=== PATIENT | female | born 2000 | race Caucasian/White ===

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

== ENCOUNTER 2023-11-15 19:54 | Emergency (ER) | payer OTHER, SELFPAY ==
[2023-11-15 20:00] VITALS: BP 150/100; PULSE 91; O2SAT 99
[2023-11-15 20:01] VITALS: BP 123/68; PULSE 70; RESP 17; TEMP 36.6; O2SAT 99
[2023-11-15 20:02] VITALS: BP 123/68; PULSE 70; RESP 17; TEMP 36.6; O2SAT 99; BMI 23.6
[2023-11-15 20:21] LABS: MANUAL DIFF FLAG NO
[2023-11-15 20:23] LABS: Basophils Percent Auto 0.2 % (0-2); Hematocrit 39.9 % (37.0-47.0); Hemoglobin 14.1 g/dl (12.0-16.0); Imm Gran Abs Auto 0.06 X10*3/uL (0.00-0.03); Imm Gran Pct Auto 0.4 % (0.0-0.4); Lymphocytes Absolute Auto 1.2 X10*3/uL (1.2-4.9); Lymphocytes Percent Auto 7.8 % (20-40); Mean Corpuscular HGB Conc 35.3 g/dl (31.0-35.0); Mean Corpuscular Hemoglobin 30.7 pg (27.0-33.0); Mean Corpuscular Volume 86.9 fL (80.0-98.0); Mean Platelet Volume 10.1 fL (9.4-12.3); Monocytes Absolute Auto 0.9 X10*3/uL (0.1-1.2); Monocytes Percent Auto 6.2 % (2-11); Neutrophils Absolute Auto 12.5 x10*3/uL (2.0-8.3); Neutrophils Percent Auto 85.4 % (45-73); Platelet Count 250 X10*3/uL (160-400); Red Blood Count 4.59 X10*6/uL (4.20-5.50); Red Cell Distribution Width 11.6 % (11.0-16.0); White Blood Count 14.7 X10*3/uL (4.8-10.8)
[2023-11-15] MEDS: ondansetron HCL 4 MG/2 ML VIAL IVPUSH (20:25)
[2023-11-15] MEDS: 0.9 % Sodium Chloride 1,000 ML 999 ML IV ×2 (20:25→22:28)
[2023-11-15 20:40] LABS: Alanine Aminotransferase 19 U/L (0-31); Albumin Level 4.9 g/dL (3.5-5.0); Alkaline Phosphatase 60 U/L (39-117); Anion Gap 18 (12-20); Aspartate Amino Transferase 20 U/L (5-31); Bilirubin Direct 0.3 mg/dL (0.0-0.5); Bilirubin Total 0.8 mg/dL (0.0-1.0); Blood Urea Nitrogen 7 mg/dL (9-16); Calcium 9.6 mg/dL (8.4-10.2); Carbon Dioxide 19 mmol/L (22-29); Chloride 103 mmol/L (96-108); Creatinine Clr Calc Pharmacy 98.7; Estimated Glomerular Filt Rate > 60; Glucose Random 112 mg/dL (60-115); Lipase 11 U/L (8-78); Potassium 3.4 mmol/L (3.3-5.1); Sodium 137 mmol/L (135-145); Total Protein 8.5 g/dL (6.5-8.0)
--- NOTE | 2023-11-15 21:51 | ED_ITS ---
HPI - Abdominal Pain General Chief Complaint: Abdominal Pain Stated Complaint: abd pain, n/v since last night Time Seen by Provider: 11/15/23 21:30 Source: patient Mode of arrival: ambulatory Limitations: no limitations History of Present Illness ED Provider: tobias VARGHESE narrative: Patient complaining of nausea vomiting since last night multiple times and were take anything solid also complaining of sore throat since yesterday, also complaining of pain in the epigastric area no fever no chills patient does smoke cannabis had similar episodes in the past Related Data Previous Rx's ?Medication ?Instructions ?Recorded ondansetron 4 mg disintegrating 4 mg PO Q6H PRN nausea and 07/25/21 tablet vomiting #10 tabs Allergies Allergy/AdvReac Type Severity Reaction Status Date / Time No Known Allergies Allergy Verified 11/15/23 20:07 Review of Systems Review of Systems Yes all other systems are reviewed and are negative [facility] Past Medical History Medical History COVID-19 Social History Social History Advance Directives: No Advance Directives Information Provided: No Physical Exam ED Vital Signs: Vital Signs - 24 hr 11/15/23 20:01 11/15/23 20:02 11/15/23 22:13 Temperature 97.8 F 97.8 F 98.2 F Pulse Rate 70 70 71 Respiratory Rate 17 17 17 Blood Pressure 123/68 123/68 114/61 Pulse Oximetry 99 99 94 Oxygen Delivery Method Room Air Room Air Room Air BMI result Body Mass Index 23.6 Appearance: Alert. Oriented X3. No acute distress. Eyes: PERRLA, No Nystagmus ENT: Pharynx erythematous, enlarged tonsils Oral Mucosa moist Neck: Normal inspection. Neck supple. CVS: Normal heart rate and rhythm. Pulses normal. Respiratory: No respiratory distress. Equal air entry bilateral, no wheezing/rales/rhonchi Abdomen: Soft, mild epigastric tenderness. Bowel sounds are present, no mass palpable, no CVA tenderness Skin: Skin warm and dry. Normal skin color. Normal skin turgor. Extremities: No lower extremity edema. No calf tenderness Neuro: Oriented X 3. No motor deficit. Medical Decision Making Medical Decision Making [place] Narrative: Patient has acute vomiting with history of same in the past likely viral lab workup is negative discharge patient home on [facility] Differential Diagnosis Differential Diagnoses: The differential diagnosis associated with the presentation includes Lab Data MDM Lab Attestation statement: I reviewed the patient's lab results. 11/15/23 20:14 11/15/23 20:14 Labs: Lab Results 11/15/23 11/15/23 Range/Units 20:14 22:12 WBC 14.7 H (4.8-10.8) X10*3/uL RBC 4.59 (4.20-5.50) X10*6/uL Hgb 14.1 (12.0-16.0) g/dl Hct 39.9 (37.0-47.0) % MCV 86.9 (80.0-98.0) fL MCH 30.7 (27.0-33.0) pg MCHC 35.3 H (31.0-35.0) g/dl RDW 11.6 (11.0-16.0) % Plt Count 250 (160-400) X10*3/uL MPV 10.1 (9.4-12.3) fL Immature Gran % (Auto) 0.4 (0.0-0.4) % Neut % (Auto) 85.4 H (45-73) % Lymph % (Auto) 7.8 L (20-40) % [place] % (Auto) 6.2 (2-11) % Eos % (Auto) 0.0 (0-4) % Baso % (Auto) 0.2 (0-2) % Lymph # (Auto) 1.2 (1.2-4.9) X10*3/uL [place] # (Auto) 0.9 (0.1-1.2) X10*3/uL Eos # (Auto) 0.0 (0.0-0.4) X10*3/uL Baso # (Auto) 0.0 (0.0-0.2) X10*3/uL Abs Immat Gran (auto) 0.06 H (0.00-0.03) X10*3/uL Absolute Neuts (auto) 12.5 H (2.0-8.3) x10*3/uL Absolute Nucleated RBC 0.000 (0.0-0.012) X10*3/uL Nucleated RBC % (auto) 0.0 (0.0-0.2) /100WBC Sodium 137 (135-145) mmol/L Potassium 3.4 (3.3-5.1) mmol/L Chloride 103 (96-108) mmol/L Carbon Dioxide 19 L (22-29) mmol/L Anion Gap 18 (12-20) BUN 7 L (9-16) mg/dL Creatinine 0.68 (0.5-1.4) mg/dL Estim Creat Clear Calc 98.7 Estimated GFR > 60 Random Glucose 112 (60-115) mg/dL Calcium 9.6 (8.4-10.2) mg/dL Total Bilirubin 0.8 (0.0-1.0) mg/dL Direct Bilirubin 0.3 (0.0-0.5) mg/dL AST 20 (5-31) U/L ALT 19 (0-31) U/L Alkaline Phosphatase 60 (39-117) U/L Total Protein 8.5 H (6.5-8.0) g/dL Albumin 4.9 (3.5-5.0) g/dL Lipase 11 (8-78) U/L Urine Color Yellow Urine Appearance Clear Urine pH 6.0 (5.0-9.0) Ur Specific [place] >= 1.030 H (1.005-1.025) Urine Protein 30 (1+) H (Neg-Trace) mg/dL Urine Glucose (UA) Negative (Negative) mg/dL Urine Ketones >=160 (Negative) mg/dL Urine Blood Trace H (Negative) Urine Nitrite Negative (Negative) Ur Leukocyte Esterase Negative (Negative) Urine RBC 0-2 (0-2) /HPF Urine WBC 0-5 (0-5) /HPF Ur Squamous Epith Cells 6-10 (0-2) /HPF Urine Bacteria 1+ (None Seen) Hyaline Casts 0-2 (0-2) /LPF Urine Test NEGATIVE (NEGATIVE) S. pyogenes GrpA EMY Negative (Negative) Medications Administered Discontinued Medications Generic Name Dose Route Start Last Admin Trade Name Freq PRN Reason Stop Dose Admin Sodium Chloride 1,000 mls @ 999 mls/hr 11/15/23 20:30 11/15/23 21:26 Ns IV 11/15/23 21:30 Infused .Q1H1M GIS[place]LE Infusion Sodium Chloride 1,000 mls @ 999 mls/hr 11/15/23 22:00 11/15/23 22:28 Ns IV 11/15/23 23:00 999 mls/hr .Q1H1M ONE Administration Ondansetron HCl 4 mg 11/15/23 20:21 11/15/23 20:25 Ondansetron Hcl 4 Mg/2 Ml Vial IVPUSH 11/15/23 20:22 4 mg ONCE ONE Administration Discharge Plan Discharge Clinical Impression: Gastroenteritis Patient Disposition: Home, Self-Care Instructions: Acute Nausea and Vomiting (ED) Additional Instructions: Plenty of fluids Zofran for severe nausea Prescriptions: No Action ondansetron 4 mg tablet,disintegrating 4 mg PO Q6H PRN (Reason: nausea and vomiting) Qty: 10 0RF Print Language: Citizen [place]
[2023-11-15 22:13] VITALS: BP 114/61; PULSE 71; RESP 17; TEMP 36.8; O2SAT 94
[2023-11-15 22:21] LABS: Appearance Urine Clear; Color Urine Yellow; Glucose Urine UA Negative (Negative); Leukocyte Esterase Urine Negative (Negative); Nitrite Urine Negative (Negative); Specific Gravity - Urine >= 1.030 (1.005-1.025); UMIC TRIGGER UACC YES; UPreg QC Valid YES; Urine Blood Trace (Negative); Urine Ketones >=160 mg/dL (Negative); Urine Pregnancy NEGATIVE (NEGATIVE); Urine Protein 30 (1+) mg/dL (Neg-Trace)
[2023-11-15 22:26] LABS: Bacteria Urine 1+ (None Seen); Hyaline Casts Urine 0-2 /LPF (0-2); RBC Urine 0-2 /HPF (0-2); WBC Urine 0-5 /HPF (0-5)
[2023-11-15 22:29] LABS: IDNOW Serial# 6674DD1D; Strep A Nucleic Acid Negative (Negative)
[2023-11-16 00:27] VITALS: BP 117/66; PULSE 72; RESP 18; TEMP 36.8; O2SAT 100
[2023-11-16 00:37] VITALS: BP 117/66; PULSE 72; RESP 18; TEMP 36.8; O2SAT 100
== END 2023-11-16 00:40 | disposition home or self-care (01) ==
PROVIDERS: Emergency Provider Internal Medicine
DX: K52.9 Noninfective gastroenteritis and colitis, unspecified (principal); J02.9 Acute pharyngitis, unspecified; R11.2 Nausea with vomiting, unspecified; Z79.899 Other long term (current) drug therapy
CPT/HCPCS: 36415; 80048; 80076; 81001; 81025; 83690; 85025; 87651; 96361; 96374; 99284; J2405

== ENCOUNTER 2024-03-20 10:15 | Emergency (ER) | payer OTHER, SELFPAY ==
[2024-03-20 10:18] VITALS: BP 112/76; PULSE 76; O2SAT 99
[2024-03-20 10:21] VITALS: BMI 21.5
--- NOTE | 2024-03-20 10:27 | ED_ITS ---
HPI - General Adult General Chief complaint: Nausea/Vomiting/Diarrhea Stated complaint: N/V/ABD PAIN PER EMS Time Seen by Provider: 03/20/24 10:27 Source: patient and EMS Mode of arrival: EMS Limitations: no limitations History of Present Illness ED Provider: Ana Rosa Bolton PA-C HPI narrative: Patient is a 23 year old assigned female at with a history of cyclic vomiting presenting to the emergency department today with nausea and vomiting. Patient states that she has been having nausea and vomiting over the last 4 hours. Patient states that this has happened before, multiple times. Patient denies any dizziness, lightheadedness, abdominal pain, fever, chills, blurry vision, double vision, loss of vision, chest pain, difficulty breathing, shortness of breath, back pain, night sweats, pain with urination, increased urinary frequency, increased urinary urgency, blood in her urine or stool, syncope or a near syncopal episode, recent trauma or falls, bowel incontinence, bladder incontinence, or any other complaints at this time. Onset (ago): hour(s) (4) Relieving factors: none Exacerbating factors: none Associated symptoms: nausea/vomiting Treatments prior to arrival: none Related Data Previous Rx's ?Medication ?Instructions ?Recorded ondansetron 4 mg disintegrating 4 mg PO Q6H PRN nausea and 07/25/21 tablet vomiting #10 tabs ondansetron 4 mg disintegrating 4 mg PO Q6-8H PRN nausea and 11/16/23 tablet vomiting #10 tabs ondansetron 4 mg disintegrating 4 mg PO Q8H 3 days #9 tabs 03/20/24 tablet Allergies Allergy/AdvReac Type Severity Reaction Status Date / Time No Known Allergies Allergy Verified 03/20/24 10:22 Review of Systems 2 Constitutional: Constitutional: Reports no additional constitutional complaints, Denies chills, Denies fever(s) and Denies night sweats Eyes: Eyes: Reports no additional eye complaints, Denies blurry vision, Denies change in vision, Denies diplopia, Denies eye discharge, Denies loss of vision and Denies eye pain ENT: Denies dizziness Cardiovascular: Cardiovascular: Reports no additional cardiovascular complaints, Denies chest pain, Denies lightheadedness, Denies Loss of Consciousness and Denies dyspnea Respiratory: Respiratory: Reports no additional respiratory complaints and Denies dyspnea Gastrointestinal: Gastrointestinal: Reports no additional gastrointestinal complaints, Denies abdominal pain, Denies melena, Denies hematochezia, Denies change in bowel habits, Denies change in stool character, Reports nausea and Reports vomiting Genitourinary: Genitourinary: Denies hematuria, Denies urinary frequency, Denies dysuria, Denies urinary incontinence, Denies urinary hesitancy and Denies urinary urgency Musculoskeletal: Musculoskeletal: Reports no additional musculoskeletal complaints, Denies numbness and Denies tingling Neurologic: Denies dizziness, Denies loss of vision, Denies numbness and Denies tingling Psychiatric: Psychiatric: Reports no additional psychiatric complaints Endocrine: Endocrine: Reports no additional endocrine complaints Hematologic/Lymphatic: Hematologic/Lymphatic: Reports no additional hematologic/lymphatic complaints Allergic/Immunologic: Allergic/Immunologic: Reports no additional allergic/immunologic complaints PMFSH Past Medical History Attestation statement: The following information was validated with the patient. Source: old records reviewed and nursing notes reviewed Medical History COVID-19 Social History Social History Substance Use Type: Marijuana Substance Use Frequency: Chronic Longstanding Last Used Substance: Days (ago) Any prior treatment program specific to substance use: No Advance Directives: No Advance Directives Information Provided: No Do you have a plan to hurt others: No Plan Physical Exam ED Vital Signs: Vital Signs - 24 hr 03/20/24 10:32 03/20/24 12:00 03/20/24 12:49 Temperature 96.8 F 98.2 F 98.2 F Pulse Rate 92 92 92 Respiratory Rate 16 13 13 Blood Pressure 135/76 95/53 L 95/53 L Pulse Oximetry 98 99 99 Oxygen Delivery Method Room Air Room Air Room Air BMI result Body Mass Index 21.5 Const General: cooperative, no acute distress, alert and awake Nutritional Appearance: well nourished Orientation/consciousness: patient oriented x3 Limitations: no limitations HENMT Head: Yes normal to inspection and Yes atraumatic Ears: hearing grossly normal bilaterally and external ears normal General nose exam: Normal external nose present, no nasal discharge noted and no epistaxis Face and sinus: Yes normal facial exam, No abrasion and No laceration Mouth: Normal oral and palatal mucosa present, no drooling and no muffled voice Eyes General: appearance normal, both eyes and all related structures Periorbital: periorbital findings normal Eyelids: Yes eyelids normal Conjunctivae: conjunctivae normal Pupils: Equal, round and reactive pupils present EOM: EOMs intact bilaterally Neck Neck: Yes normal visual inspection, Yes full ROM and Yes no lymphadenopathy Chest Chest palpation & inspection: normal inspection of the chest Resp Effort & Inspection: normal respiratory effort and able to speak in complete sentences GI Inspection: Yes normal to inspection Neuro General: patient oriented x3 and moves all extremities Cranial nerves: Yes Equal, round and reactive pupils present Cognition (Neuro): normal cognition Extrem General: Yes normal to inspection, Yes full ROM and Yes capillary refill normal Psych Appearance: grossly normal Mental Status: mental status grossly normal Affect: normal affect Attitude: cooperative Thought process: Normal thought process present Thought content: Normal thought content present Insight: Good insight present (Psych) Medications Administered Discontinued Medications Generic Name Dose Route Start Last Admin Trade Name Freq PRN Reason Stop Dose Admin Droperidol 1.25 mg 03/20/24 10:28 03/20/24 10:59 Droperidol 5 Mg/2 Ml Vial IVPUSH 03/20/24 10:29 1.25 mg ONCE ONE Administration Medical Decision Making Medical Decision Making [facility] Narrative: Patient is a 23 year old assigned female at with a history of cyclic vomiting presenting to the emergency department today with nausea and vomiting. Patient's physical exam was unremarkable. Patient's blood work was unremarkable. Patient's urine showed no acute process. I explained my physical exam findings as well as all test results to the patient. I answered all questions asked by the patient. Patient received IV fluids from EMS and droperidol which, upon re- evaluation, she stated it helped her symptoms significantly. Patient was able to tolerate PO intake while in the department. I stressed the importance of the patient taking her medication as directed (either prescribed or as the over the counter packaging recommends). I stressed the importance of the patient following up with her primary care provider and a GI specialist. I stressed the importance of the patient returning to the emergency department immediately if her symptoms were to worsen or if she were to develop any dizziness, shortness of breath, difficulty breathing, chest pain, blurry vision, loss of vision, nausea, vomiting, abdominal pain, fever, chills, back pain, or any other complaints. Patient verbalized agreement and understanding with this treatment plan and discharge. Differential Diagnosis Differential Diagnoses: The differential diagnosis associated with the presentation includes Nausea Vomiting Cyclic vomiting Admission/Observation Consideration of admission/observation: Escalation of care including admission/observation considered Patient would have been admitted to the hospital had her work up had any findings where hospital admission was appropriate and her clinical presentation warranted hospital admission. Lab Data [facility] Lab Attestation statement: I reviewed the patient's lab results. My interpretation of these results are in the [facility] Rationale portion of this note. 03/20/24 11:19 03/20/24 11:19 Labs: Lab Results 03/20/24 03/20/24 03/20/24 Range/Units 11:16 11:19 11:20 WBC 10.3 (4.8-10.8) X10*3/uL RBC 4.29 (4.20-5.50) X10*6/uL Hgb 12.9 (12.0-16.0) g/dl Hct 38.6 (37.0-47.0) % MCV 90.0 (80.0-98.0) fL MCH 30.1 (27.0-33.0) pg MCHC 33.4 (31.0-35.0) g/dl RDW 11.8 (11.0-16.0) % Plt Count 235 (160-400) X10*3/uL MPV 10.1 (9.4-12.3) fL Immature Gran % (Auto) 0.6 H (0.0-0.4) % Neut % (Auto) 83.0 H (45-73) % Lymph % (Auto) 12.9 L (20-40) % [place] % (Auto) 3.1 (2-11) % Eos % (Auto) 0.1 (0-4) % Baso % (Auto) 0.3 (0-2) % Lymph # (Auto) 1.3 (1.2-4.9) X10*3/uL [place] # (Auto) 0.3 (0.1-1.2) X10*3/uL Eos # (Auto) 0.0 (0.0-0.4) X10*3/uL Baso # (Auto) 0.0 (0.0-0.2) X10*3/uL Abs Immat Gran (auto) 0.06 H (0.00-0.03) X10*3/uL Absolute Neuts (auto) 8.6 H (2.0-8.3) x10*3/uL Absolute Nucleated RBC 0.000 (0.0-0.012) X10*3/uL Nucleated RBC % (auto) 0.0 (0.0-0.2) /100WBC Sodium 142 (135-145) mmol/L Potassium 3.4 (3.3-5.1) mmol/L Chloride 109 H (96-108) mmol/L Carbon Dioxide 17 L (22-29) mmol/L Anion Gap 19 (12-20) BUN 9 (9-16) mg/dL Creatinine 0.67 (0.5-1.4) mg/dL Estim Creat Clear Calc 114.7 Estimated GFR > 60 Random Glucose 119 H (60-115) mg/dL Calcium 9.2 (8.4-10.2) mg/dL Magnesium 1.7 (1.6-2.6) mg/dL Total Bilirubin 0.5 (0.0-1.0) mg/dL AST 16 (5-31) U/L ALT 11 (0-31) U/L Alkaline Phosphatase 44 (39-117) U/L Total Protein 7.7 (6.5-8.0) g/dL Albumin 4.3 (3.5-5.0) g/dL Beta HCG, Quant < 2 mIU/mL Urine Color Yellow Urine Appearance Clear Urine pH >= 9.0 (5.0-9.0) Ur Specific [place] 1.025 (1.005-1.025) Urine Protein Trace (Neg-Trace) mg/dL Urine Glucose (UA) Negative (Negative) mg/dL Urine Ketones 80 (Negative) mg/dL Urine Blood Negative (Negative) Urine Nitrite Negative (Negative) Ur Leukocyte Esterase Negative (Negative) Influenza Type A (PCR) NEGATIVE (Negative) Influenza Type B (PCR) NEGATIVE (Negative) RSV RNA Qual (PCR) NEGATIVE (Negative) SARS-CoV-2 RNA (RT-PCR) NEGATIVE (Negative) Independent Historian Clinical information obtained from an independent historian. History obtained from or confirmed by: EMS (EMS provided additional history and confirmed the history provided by the patient.) Tests considered The following testing was considered but not selected: I considered obtaining a CT scan of the abdomen/pelvis however the patient's current presentation and work up does not warrant this. I discussed this with the patient who verbalized understanding and agreement. Critical Care Time Critical Care Time Critical Care Time: Yes Total Critical Care Time: 34 Attestation: I spent 34 minutes of Critical Care Time with this patient. This does not include time spent on separately reported billable procedures. Discharge Plan Discharge Clinical Impression: Nausea & vomiting Patient Disposition: Home, Self-Care Instructions: Acute Nausea and Vomiting (ED) Additional Instructions: Follow up with your primary care provider. Return to the emergency department immediately if your symptoms worsen or if you develop any dizziness, shortness of breath, difficulty breathing, chest pain, blurry vision, loss of vision, nausea, vomiting, abdominal pain, fever, chills, back pain, or any other complaints. Prescriptions: New ondansetron 4 mg tablet,disintegrating 4 mg PO Q8H 3 Days Qty: 9 0RF No Action ondansetron 4 mg tablet,disintegrating 4 mg PO Q6H PRN (Reason: nausea and vomiting) Qty: 10 0RF ondansetron 4 mg tablet,disintegrating 4 mg PO Q6-8H PRN (Reason: nausea and vomiting) Qty: 10 0RF Referrals: [facility] Gastroenterology Services [Provider Group] (Call to establish and follow up with a GI specialist. ) [facility] Family Medicine [Provider Group] (Call to establish and follow up with a primary care provider. If you already have a primary care provider, please follow up with them.) [facility] [Provider Group] (Call to establish and follow up with a primary care provider. If you already have a primary care provider, please follow up with them.) [facility] [Provider Group] (Call to establish and follow up with a primary care provider. If you already have a primary care provider, please follow up with them.) Stand Alone Forms: Work/School Release Interventions: ED Discharge Assessment Last Done: 03/20/24 12:49 Discharge Date/Time: 03/20/24 12:51 Print Language: Faroese
[2024-03-20 10:32] VITALS: BP 135/76; PULSE 92; RESP 16; TEMP 36; O2SAT 98
[2024-03-20] MEDS: droPERidol 5 MG/2 ML VIAL 1.25 MG IVPUSH (10:59)
[2024-03-20 11:24] LABS: MANUAL DIFF FLAG NO
[2024-03-20 11:28] LABS: Basophils Percent Auto 0.3 % (0-2); Eosinophils Percent Auto 0.1 % (0-4); Hematocrit 38.6 % (37.0-47.0); Hemoglobin 12.9 g/dl (12.0-16.0); Imm Gran Abs Auto 0.06 X10*3/uL (0.00-0.03); Imm Gran Pct Auto 0.6 % (0.0-0.4); Lymphocytes Absolute Auto 1.3 X10*3/uL (1.2-4.9); Lymphocytes Percent Auto 12.9 % (20-40); Mean Corpuscular HGB Conc 33.4 g/dl (31.0-35.0); Mean Corpuscular Hemoglobin 30.1 pg (27.0-33.0); Mean Platelet Volume 10.1 fL (9.4-12.3); Monocytes Absolute Auto 0.3 X10*3/uL (0.1-1.2); Monocytes Percent Auto 3.1 % (2-11); Neutrophils Absolute Auto 8.6 x10*3/uL (2.0-8.3); Platelet Count 235 X10*3/uL (160-400); Red Blood Count 4.29 X10*6/uL (4.20-5.50); Red Cell Distribution Width 11.8 % (11.0-16.0); White Blood Count 10.3 X10*3/uL (4.8-10.8)
[2024-03-20 11:29] LABS: Appearance Urine Clear; Color Urine Yellow; Glucose Urine UA Negative (Negative); Leukocyte Esterase Urine Negative (Negative); Nitrite Urine Negative (Negative); PH >= 9.0 (5.0-9.0); Specific Gravity - Urine 1.025 (1.005-1.025); Urine Blood Negative (Negative); Urine Ketones 80 mg/dL (Negative); Urine Protein Trace mg/dL (Neg-Trace)
[2024-03-20 11:50] LABS: Alanine Aminotransferase 11 U/L (0-31); Albumin Level 4.3 g/dL (3.5-5.0); Alkaline Phosphatase 44 U/L (39-117); Anion Gap 19 (12-20); Aspartate Amino Transferase 16 U/L (5-31); Bilirubin Total 0.5 mg/dL (0.0-1.0); Blood Urea Nitrogen 9 mg/dL (9-16); Calcium 9.2 mg/dL (8.4-10.2); Carbon Dioxide 17 mmol/L (22-29); Chloride 109 mmol/L (96-108); Creatinine Clr Calc Pharmacy 114.7; Estimated Glomerular Filt Rate > 60; Glucose Random 119 mg/dL (60-115); Magnesium 1.7 mg/dL (1.6-2.6); Potassium 3.4 mmol/L (3.3-5.1); Sodium 142 mmol/L (135-145); Total Protein 7.7 g/dL (6.5-8.0)
[2024-03-20 12:00] VITALS: BP 95/53; PULSE 92; RESP 13; TEMP 36.8; O2SAT 99
[2024-03-20 12:00] LABS: HCG Quantitative < 2 mIU/mL
--- NOTE | 2024-03-20 12:18 | PC.NURSE ---
pt requesting discharge, reports that she is feeling better, given edward michelle and francisco villagomez for PO challenge.
[2024-03-20 12:23] LABS: Influenza A PCR NEGATIVE (Negative); Influenza B PCR NEGATIVE (Negative); Resp Syncy Virus RNA Qual PCR NEGATIVE (Negative); SARS COV2 PCR INHOUSE NEGATIVE (Negative)
[2024-03-20 12:49] VITALS: BP 95/53; PULSE 92; RESP 13; TEMP 36.8; O2SAT 99
== END 2024-03-20 12:51 | disposition home or self-care (01) ==
PROVIDERS: Physician Assistant Medical; Emergency Provider Emergency Medicine
DX: R11.2 Nausea with vomiting, unspecified (principal); Z03.818 Encounter for observation for suspected exposure to other biological agents ruled out
CPT/HCPCS: 0241U; 36415; 80053; 81003; 83735; 84702; 85025; 96374; 99284; J1790

== ENCOUNTER 2024-11-02 16:20 | Emergency (ER) | payer OTHER, SELFPAY ==
[2024-11-02 16:41] VITALS: BP 128/71; PULSE 80; O2SAT 98
[2024-11-02 16:51] VITALS: BP 122/49; PULSE 82; RESP 20; TEMP 36.7; O2SAT 98; BMI 23.6
[2024-11-02 19:33] LABS: MANUAL DIFF FLAG NO
--- NOTE | 2024-11-02 19:34 | PC.NURSE ---
Labs collected and sent for analysis. Results pending.
[2024-11-02 19:50] LABS: Basophils Percent Auto 0.2 % (0-2); Hematocrit 37.1 % (37.0-47.0); Hemoglobin 12.7 g/dl (12.0-16.0); Imm Gran Abs Auto 0.03 X10*3/uL (0.00-0.03); Imm Gran Pct Auto 0.5 % (0.0-0.4); Lymphocytes Absolute Auto 0.6 X10*3/uL (1.2-4.9); Lymphocytes Percent Auto 9.7 % (20-40); Mean Corpuscular HGB Conc 34.2 g/dl (31.0-35.0); Mean Corpuscular Hemoglobin 30.8 pg (27.0-33.0); Monocytes Absolute Auto 0.6 X10*3/uL (0.1-1.2); Monocytes Percent Auto 9.4 % (2-11); Neutrophils Absolute Auto 5.2 x10*3/uL (2.0-8.3); Neutrophils Percent Auto 80.2 % (45-73); Platelet Count 246 X10*3/uL (160-400); Red Blood Count 4.12 X10*6/uL (4.20-5.50); Red Cell Distribution Width 12.4 % (11.0-16.0); White Blood Count 6.4 X10*3/uL (4.8-10.8)
--- NOTE | 2024-11-02 19:58 | ED_ITS ---
HPI - Nausea/Vomiting/Diarrhea General Chief complaint: Nausea/Vomiting/Diarrhea Stated complaint: abd pain; n/v Time Seen by Provider: 11/02/24 19:23 Source: patient Mode of arrival: ambulatory Limitations: no limitations History of Present Illness ED Provider: HPI Narrative: 23-year-old female, here with her boyfriend, longstanding history of GI issues, has not seen a PCP if she does not have 1 and has not seen a GI, has recurrent issues with diarrhea and then her boyfriend states that she also most of the time is constipated. Smokes marijuana, denies any drug use or tobacco use, occasional alcohol use. Related Data Previous Rx's ?Medication ?Instructions ?Recorded ondansetron 4 mg disintegrating 4 mg PO Q6H PRN nausea and 07/25/21 tablet vomiting #10 tabs ondansetron 4 mg disintegrating 4 mg PO Q6-8H PRN nausea and 11/16/23 tablet vomiting #10 tabs ondansetron 4 mg disintegrating 4 mg PO Q8H 3 days #9 tabs 03/20/24 tablet dicyclomine 10 mg capsule 10 mg PO TID PRN spasms 7 days #21 11/02/24 caps ondansetron 4 mg disintegrating 4 mg PO Q8H PRN nausea and 11/02/24 tablet vomiting 3 days #4 tabs psyllium husk 3.4 gram/5.4 gram 1 tbsp PO BID #660 grams 11/02/24 oral powder (Metamucil) Allergies Allergy/AdvReac Type Severity Reaction Status Date / Time No Known Allergies Allergy Verified 11/02/24 16:54 Review of Systems 2 Constitutional: Constitutional: Reports as per HPI [facility] Past Medical History Medical History COVID-19 Social History Social History Substance Use Type: Marijuana Advance Directives: No Advance Directives Information Provided: Yes Physical Exam 2 Vital Signs: Vital Signs: Last Vital Signs Temp 98.1 F 11/02/24 16:51 Pulse 82 11/02/24 16:51 Resp 20 11/02/24 16:51 BP 122/49 L 11/02/24 16:51 Pulse Ox 98 11/02/24 16:51 O2 Del Method Room Air 11/02/24 16:51 BMI result Body Mass Index 23.6 Const: Other: * Gen: ?Overall well-appearing patient * CV: RRR, no obvious murmurs appreciated * Resp: ?No wheezing rales rhonchi no stridor moving air well * Abd: ?Bowel sounds are present, no tenderness no rebound no rigidity * MSK: FROM, strength 5/5 all extremities * Skin: Warm, dry, intact, * Neuro: ?Alert and oriented x3, moving upper and lower extremities symmetrically, no obvious facial asymmetry noted Medical Decision Making Medical Decision Making MDM Narrative: Presenting with chronic recurrent GI issues, long discussion regarding dietary changes, abstinence from alcohol and marijuana, fairly benign abdominal exam I do not suspect biliary or pancreatic pathology, she has no urinary symptoms and I have low suspicion with her recurrent symptoms that she is presenting with -related issues. Differential Diagnosis Differential Diagnoses: The differential diagnosis associated with the presentation includes Cholecystitis, pancreatitis, hepatitis, gastritis, cholangitis, choledocholithiasis, ovarian pathology, Admission/Observation Consideration of admission/observation: Escalation of care including admission/observation considered Lab Data 11/02/24 19:28 11/02/24 19:28 Labs: Lab Results 11/02/24 11/02/24 Range/Units 19:27 19:28 WBC 6.4 (4.8-10.8) X10*3/uL RBC 4.12 L (4.20-5.50) X10*6/uL Hgb 12.7 (12.0-16.0) g/dl Hct 37.1 (37.0-47.0) % MCV 90.0 (80.0-98.0) fL MCH 30.8 (27.0-33.0) pg MCHC 34.2 (31.0-35.0) g/dl RDW 12.4 (11.0-16.0) % Plt Count 246 (160-400) X10*3/uL MPV 10.0 (9.4-12.3) fL Immature Gran % (Auto) 0.5 H (0.0-0.4) % Neut % (Auto) 80.2 H (45-73) % Lymph % (Auto) 9.7 L (20-40) % [place] % (Auto) 9.4 (2-11) % Eos % (Auto) 0.0 (0-4) % Baso % (Auto) 0.2 (0-2) % Lymph # (Auto) 0.6 L (1.2-4.9) X10*3/uL [place] # (Auto) 0.6 (0.1-1.2) X10*3/uL Eos # (Auto) 0.0 (0.0-0.4) X10*3/uL Baso # (Auto) 0.0 (0.0-0.2) X10*3/uL Abs Immat Gran (auto) 0.03 (0.00-0.03) X10*3/uL Absolute Neuts (auto) 5.2 (2.0-8.3) x10*3/uL Absolute Nucleated RBC 0.000 (0.0-0.012) X10*3/uL Nucleated RBC % (auto) 0.0 (0.0-0.2) /100WBC Sodium 140 (135-145) mmol/L Potassium 4.1 D (3.3-5.1) mmol/L Chloride 108 (96-108) mmol/L Carbon Dioxide 23 (22-29) mmol/L Anion Gap 13 (12-20) BUN 5 L (9-16) mg/dL Creatinine 0.58 (0.5-1.4) mg/dL Estim Creat Clear Calc 115.8 Estimated GFR > 60 Random Glucose 91 (60-115) mg/dL Calcium 8.9 (8.4-10.2) mg/dL Magnesium 2.0 (1.6-2.6) mg/dL Total Bilirubin 0.3 (0.0-1.0) mg/dL Direct Bilirubin 0.1 (0.0-0.5) mg/dL AST 25 (5-31) U/L ALT 13 (0-31) U/L Alkaline Phosphatase 61 (39-117) U/L Total Protein 7.3 (6.5-8.0) g/dL Albumin 4.3 (3.5-5.0) g/dL Lipase 14 (8-78) U/L Beta HCG, Quant < 2 mIU/mL Influenza Type A (PCR) NEGATIVE (Negative) Influenza Type B (PCR) NEGATIVE (Negative) RSV RNA Qual (PCR) NEGATIVE (Negative) SARS-CoV-2 RNA (RT-PCR) NEGATIVE (Negative) Discharge Plan Discharge Clinical Impression: Nausea and vomiting Patient Disposition: Home, Self-Care Additional Instructions: Needs we had a lengthy discussion regarding dietary changes I recommend that he look into that, dicyclomine use when you have cramping, I recommended he take Metamucil twice a day, and Zofran only as needed for nausea and vomiting. Please ask the nurse to see if there are any resources for you to see a primary care physician and I would recommend that you see a dental director to be evaluated for H pylori, celiac disease, and screened for inflammatory bowel syndrome. Call [facility] dental director saw so it is and see if they would for visits from an emergency department physician. Other work has been reassuring any other issues concerns come back to the ER. Prescriptions: New dicyclomine 10 mg capsule 10 mg PO TID PRN (Reason: spasms) 7 Days Qty: 21 0RF Metamucil 3.4 gram/5.4 gram powder 1 tbsp PO BID Qty: 660 0RF Rx Instructions: mix into at least 8 oz of water or juice before administering ondansetron 4 mg tablet,disintegrating 4 mg PO Q8H PRN (Reason: nausea and vomiting) 3 Days Qty: 4 0RF No Action ondansetron 4 mg tablet,disintegrating 4 mg PO Q6H PRN (Reason: nausea and vomiting) Qty: 10 0RF ondansetron 4 mg tablet,disintegrating 4 mg PO Q8H 3 Days Qty: 9 0RF ondansetron 4 mg tablet,disintegrating 4 mg PO Q6-8H PRN (Reason: nausea and vomiting) Qty: 10 0RF Referrals: [facility] Gastroenterology Services [Provider Group] Print Language: Greek
[2024-11-02 20:01] LABS: Alanine Aminotransferase 13 U/L (0-31); Albumin Level 4.3 g/dL (3.5-5.0); Anion Gap 13 (12-20); Aspartate Amino Transferase 25 U/L (5-31); Bilirubin Direct 0.1 mg/dL (0.0-0.5); Bilirubin Total 0.3 mg/dL (0.0-1.0); Blood Urea Nitrogen 5 mg/dL (9-16); Calcium 8.9 mg/dL (8.4-10.2); Carbon Dioxide 23 mmol/L (22-29); Chloride 108 mmol/L (96-108); Creatinine Clr Calc Pharmacy 115.8; Estimated Glomerular Filt Rate > 60; Glucose Random 91 mg/dL (60-115); Lipase 14 U/L (8-78); Potassium 4.1 mmol/L (3.3-5.1); Sodium 140 mmol/L (135-145); Total Protein 7.3 g/dL (6.5-8.0)
[2024-11-02 20:12] LABS: Influenza A PCR NEGATIVE (Negative); Influenza B PCR NEGATIVE (Negative); Resp Syncy Virus RNA Qual PCR NEGATIVE (Negative); SARS COV2 PCR INHOUSE NEGATIVE (Negative)
[2024-11-02 20:14] LABS: Alkaline Phosphatase 61 U/L (39-117); HCG Quantitative < 2 mIU/mL
[2024-11-02] MEDS: Dicyclomine HCl 10 MG CAPSULE PO (20:31)
[2024-11-02] MEDS: Magnesium Hydrox/Alum Hydrox 30 ML ORAL.SUSP PO (20:31)
[2024-11-02] MEDS: Famotidine/PF 20 MG/2 ML VIAL IVPUSH (20:31)
[2024-11-02 20:42] VITALS: BP 122/49; PULSE 82; RESP 20; TEMP 36.7; O2SAT 98
== END 2024-11-02 20:42 | disposition home or self-care (01) ==
PROVIDERS: Physician Assistant Medical; Emergency Provider Emergency Medicine
DX: R11.2 Nausea with vomiting, unspecified (principal); R10.2 Pelvic and perineal pain; F12.90 Cannabis use, unspecified, uncomplicated; Z79.899 Other long term (current) drug therapy; Z03.818 Encounter for observation for suspected exposure to other biological agents ruled out
CPT/HCPCS: 0241U; 80048; 80076; 83690; 83735; 84702; 85025; 96374; 99282; 99284; J1308

== ENCOUNTER 2025-02-20 04:23 | Emergency (ER) | payer OTHER, SELFPAY ==
[2025-02-20 04:31] VITALS: BP 136/88; PULSE 103; O2SAT 100; BMI 23.2
[2025-02-20] MEDS: Lactated Ringers 1,000 ML 999 ML IV (04:44)
--- NOTE | 2025-02-20 05:04 | PC.NURSE ---
pt tearful on arrival, retching. droperidol given. within 1 minute, patient tearfulness, anxiety, expression of pain resolved, states pain went from 10/10 to 3/10. no vomiting here (denies hematemesis, dysuria, CP, SOB). MD Jeong aware. at 0507 patient removed own IV, saline draining onto floor, boyfriend at bedside. patient told MD is aware and she will be at [pt bedside in a moment. 0509 patient and boyfriend briskly walking toward wrong exit, this nurse verbally told them the exit is the other way, MD met in front of room and patient willingly sat in bed and allowed for MD exam.
--- NOTE | 2025-02-20 05:10 | ED_ITS ---
HPI - Abdominal Pain General Chief Complaint: Abdominal Pain Stated Complaint: abdominal pain Time Seen by Provider: 02/20/25 04:27 Source: patient and EMS Mode of arrival: EMS Limitations: no limitations History of Present Illness ED Provider: Dr. Alexandra Jeong HPI narrative: 24-year-old female with a history of cyclic vomiting syndrome, marijuana and alcohol use presenting with nausea and vomiting, severe epigastric abdominal pain ongoing for the last several hours. Admits she drank ?3 shooters of alcohol? last night and awoke with severe abdominal pain, nausea and vomiting. Had a similar episode back in November and was treated at this hospital. Admits that she is feeling much worse now. Was medicated with Zofran, fluids and fentanyl by EMS without any real relief of her symptoms. Otherwise denies recent illness including fevers, cough or cold-type symptoms, chest pain or difficulty breathing. No urinary complaints. No follow up with GI. Related Data Previous Rx's ?Medication ?Instructions ?Recorded ondansetron 4 mg disintegrating 4 mg PO Q6H PRN nausea and 07/25/21 tablet vomiting #10 tabs ondansetron 4 mg disintegrating 4 mg PO Q6-8H PRN naus ea and 11/16/23 tablet vomiting #10 tabs ondansetron 4 mg disintegrating 4 mg PO Q8H 3 days #9 tabs 03/20/24 tablet dicyclomine 10 mg capsule 10 mg PO TID PRN spasms 7 da ys #21 11/02/24 caps ondansetron 4 mg disintegrating 4 mg PO Q8H PRN nausea and 11/02/24 tablet vomiting 3 days #4 tabs psyllium husk 3.4 gram/5.4 gram 1 tbsp PO BID #660 gra ms 11/02/24 oral powder (Metamucil) Allergies Allergy/AdvReac Type Severity Reaction Status Date / Time No Known Allergies Allergy Verified 02/20/25 04:32 Review of Systems Review of Systems as per HPI, full review of systems performed and negative but for the above mentioned pertinent positives and negatives. PMFSH Past Medical History Medical History COVID-19 Social History Social History Substance Use Type: Marijuana Do you have a plan to hurt others: No Plan Physical Exam ED Exam Exam: GENERAL: Ill-Appearing, appears uncomfortable. SKIN: Normal skin color for ethnicity, warm, dry, no rashes noted. HEENT: Normocephalic, atraumatic, no stridor, dry mucous membranes, dentition intact, EOMI, PERRLA. NECK: Soft, supple, full ROM, midline structures nontender, no step-offs, no deformities, no lymphadenopathy. CHEST: Heart regular tachycardia, no murmurs, symmetric chest rise and fall. PULMONARY: Clear to auscultation bilaterally, diminished at the bases, no labored breathing, no wheezes/rhales/rhonchi. ABDOMINAL: Soft, nondistended, nontender, hyperactive bowel sounds in all quadrants. : Deferred. MUSCULOSKELETAL: Normal tone, full range of motion, no deformities, no peripheral edema. NEURO: Alert and oriented x3, CN II through XII intact, equal strength and sensation bilateral upper and lower extremities, no focal neurologic deficits. PSYCHIATRIC: Flat affect, fluid speech, good eye contact and appropriate demeanor. Vital Signs: BMI result Body Mass Index 23.2 Medical Decision Making Medical Decision Making [facility] Narrative: Patient presents today with a chief complaint of vomiting. Differential diagnosis includes surgical emergency such as obstruction or enteritis, as well as hyperglycemia, acidosis, food or drug ingestion, pancreatitis, CVA, allergic reaction such as anaphylaxis, cannabis hyperemesis syndrome or cyclic vomiting syndrome, among many others. Patient is not showing signs of acute dehydration or hemodynamic instability. They are having associated abdominal pain. Broad-based work-up was initiated based on above history and physical exam. 5:14 AM 02/20/2025 (Dr. Alexandra Jeong, D.O.) Patient given a dose of droperidol immediately upon arrival to the emergency department after receiving IV fentanyl and Zofran by EMS. She is feeling significantly improved and is requesting discharge home at this time. Using shared decision making, plan for discharge home to follow-up with primary care and/or specialist. Patient understands and agrees with plan for discharge. Discharged home in stable condition. Differential Diagnosis Differential Diagnoses: The differential diagnosis associated with the pre sentation includes (As above) Admission/Observation Consideration of admission/observation: Escalation of care including admission/observation considered Lab Data [facility] Lab Attestation statement: I reviewed the patient's lab results. Independent Historian Clinical information obtained from an independent historian. History obtained from or confirmed by: Friend and EMS External Record Review External record reviewed: Inpatient record Prescription Management I considered prescription management with: Other (Antiemetic) Chronic Conditions Patient?s care impacted by: Other (Cyclic vomiting syndrome, marijuana use) Medications Administered Generic Name Dose Route Start Last Admin Trade Name Freq PRN Reason Stop Dose Admin Lactated Ringer's 1,000 mls @ 999 mls/hr 02/20/25 04:28 02/20/25 05:06 Lr IV 02/20/25 05:28 Infused .Q1H1M ONE Infusion Discontinued Medications Generic Name Dose Route Start Last Admin Trade Name Freq PRN Reason Stop Dose Admin Droperidol 1.25 mg 02/20/25 04:28 02/20/25 04:43 Droperidol 5 Mg/2 Ml Vial IVPUSH 02/20/25 04:29 1.25 mg ONCE ONE Administration Discharge Plan Discharge Clinical Impression: Cyclic vomiting syndrome Patient Disposition: Home, Self-Care Instructions: Acute Nausea and Vomiting (ED) Additional Instructions: Avoid marijuana and alcohol when possible. Return to the ER with any new or worsening symptoms including: Difficulty breathing, chest pain, fevers greater than 100?, inability to tolerate food or drink, any new symptom that concerns you. Call 911 with any medical emergency. Prescriptions: No Action ondansetron 4 mg tablet,disintegrating 4 mg PO Q6H PRN (Reason: nausea and vomiting) Qty: 10 0RF ondansetron 4 mg tablet,disintegrating 4 mg PO Q8H 3 Days Qty: 9 0RF dicyclomine 10 mg capsule 10 mg PO TID PRN (Reason: spasms) 7 Days Qty: 21 0RF Metamucil 3.4 gram/5.4 gram powder 1 tbsp PO BID Qty: 660 0RF Rx Instructions: mix into at least 8 oz of water or juice before administering ondansetron 4 mg tablet,disintegrating 4 mg PO Q8H PRN (Reason: nausea and vomiting) 3 Days Qty: 4 0RF ondansetron 4 mg tablet,disintegrating 4 mg PO Q6-8H PRN (Reason: nausea and vomiting) Qty: 10 0RF Print Language: Georgian
[2025-02-20 05:15] VITALS: BP 110/56; PULSE 69; RESP 16; TEMP 36.4; O2SAT 96
[2025-02-20 05:18] VITALS: BP 110/56; PULSE 69; RESP 16; TEMP 36.4; O2SAT 96
--- OUTSIDE RECORDS SUMMARY | 2025-02-20 05:20 | XMS_ITS | Clinical Summary ---
Author Organization [facility] Address [address] [place] [address] Phone Care Team Providers Care Registered Physical Therapist Name Role Phone Unavailable Primary Care Provider Unavailabl e Allergies No known active allergies Medications No known medications Active Problems Problem Noted Date Diagnosed Date Pes planus 08/04/2014 Overweight, pediatric, BMI 85.0-94.9 percentile for age 0903/01/2011 Immunizations Immunization Administration Dates Next Due DTaP 5 01/16/2007, 5,05/05/2003,03/16,01/14/2003 HPV Vaccine 9 Valent 03/25/2015 HPV, Quadrivalent 06/15/2014,03/11/2014 Hep A, ped/adol 08/07/2017,03/11/2014 Hep B, ped/adol 08/12/2003,05/05/2003,2002 Hib (PRP-T) 03/23/2004, 3,03/16/2003,01/14 IPV 01/16/2007, 4,03/16/2003,01/14 Influenza, injectable, quadr ivalent, preservative free 02/11/2020,03/03/2018,08/07/2017 Influenza, intranasal, quadrivalent 03/25/2015,1 Influenza, intranasal, trivalent 07/02/2012,02/02 MMR 11/10/2003 MMRV 01/16/2007 Meningococcal Conj (Menactra) MCV4P 02/11/2020,1 Pneumococcal Conjugate 03/23/2004,2002,03/16/2003,01/14 Tdap 03/11/2014 Varicella 11/10/2003 Family History Medical History Relation Name Comments No Known Problems Mother Roberta No Known Problems Sister 1 Radha No Known Problems Sister 2 Tuan Relation Name Status Comments Brother Brother: ADD/AD HD Mother Roberta Alive Mother: Alive a nd well Sister 1 Radha Alive Sister: Alive a nd well, Alive and well Sister 2 Tuan Alive Sister: Alive a nd well, Alive and well Social History Tobacco Use Types Packs/Day Years Used Date Smoking Tobacco: Never Smokeless Tobacco: Never Tobacco Cessation:Counseling Given: Yes Comments:Has done some vaping Alcohol Use Standard Drinks/Week Comments No 0 (1 standard drink = 0.6 oz pur e alcohol) Hunger/Food Answer Date Recorded In the last 12 months, did y ou or your family ever eat less than you felt you should because there wasn't enough money for food? No 02/11/2020 Stable Housing Answer Date Recorded Are you worried that in the next 2 months you may not have stable housing? No 02/11/2020 Transportation Concerns Answer Date Rec orded In the last 12 months, have you or your family ever had to go without healthcare because you didn't have a way to get there? No 02/11/2020 Hazards in Home Answer Date Recorded Think about the place you li ve. Do you have problems with any of the following? Pests (mice or roaches), mold, no/not working smoke detectors, water leaks, no window guards. No 2019 Financing Utilities Answer Date Recorde d In the last 12 months, has t he electric, gas, oil, or water company threatened to shut off your services in your home? No 02/11/2020 Safety at Home Answer Date Recorded Are you or your family worried about feeling saf e in your home? No 02/11/2020 Outside Support Answer Date Recorded Do you feel that you need mo re support from other people or programs to help you care for yourself or your family? No 02/11/2020 Understanding Health Concerns Answer Da te Recorded Do you need help understandi ng your or your child's healthcare needs (diagnosis, medications, plan, etc.)? No 02/11/2020 Financing Health Concerns Answer Date R ecorded In the last 12 months, was t here a time when your child needed to see a doctor or get medications or supplies but could not because of cost? 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 No 02/11/2020 Comments No Sex and Gender Information Value Date Recorded Sex Assigned at Not on file Legal Sex Female 5:00 PM EDT Gender Identity Not on file Sexual Orientation Not on file Last Filed Vital Signs Vital Sign Reading Time Taken Comments Blood Pressure 114/73 02/11/2020 2:35 PM EDT Pulse 89 02/11/2020 2:35 PM EDT Temperature 35.9 C (96.6 F) 02/11/2020 2:35 PM EDT Respiratory Rate - - Oxygen Saturation - - Inhaled Oxygen Concentration - - Weight 60.6 kg (133 lb 8 oz) 02/11/2020 2:35 PM EDT Height 155.6 cm (5' 1.25 ) 02/11/2020 2:35 PM ED T Body Mass Index 25.02 02/11/2020 2:35 PM EDT Plan of Treatment Health Maintenance Due Date Last Done Comments Men B Vaccine (1 of 2 - Standard) 2018 DTaP,Tdap,and Td Vaccines (7 - Td or Tdap) 03/11/2024 03/11/2014, 01/16/2007, 06/21/2004, Additional history exists Influenza Vaccines (#1) 2025 02/11/20 20, 03/03/2018, 08/07/2017, Additional history exists COVID-19 Vaccine (3 - 2024-2 6 season) 2025 10/19/2020, 09/27/2020 Hepatitis B Vaccines Completed 08/12/2003, 05/05/2003, 2002 HIB Vaccines Completed 03/23/2004, 08/2002, 03/16/2003, Additional history exists Pneumococcal Vaccine Completed 03/23/2004, 05/05/2003, 03/16/2003, Additional history exists IPV Vaccines Completed 01/16/2007, 08/01, 03/16/2003, Additional history exists MMR Vaccines Completed 01/16/2007, 11/10/2003 Varicella Vaccines Completed 01/16/2007, 11/10/2003 HPV Vaccines Completed 03/25/2015, 06/03, 03/11/2014 Hepatitis A Vaccines Completed 08/07/2017, 03/11/20 14 Meningococcal Vaccine Completed 02/11/2020, 014 Procedures * Due to [place] [employer] law, this organization might not be sharing sensitive test results. Procedure Name Priority Date/Time Associated Diagnosis Comments CHLAMYDIA AND GONORRHEA, AMPLIFIED Routine 02/11/2020 3:51 PM EDT Screening examination for bacterial and spirochetal disease from Last 3 Months or Most Recently Relevant to Health Maintenance Results * Due to [facility] law, this organization might not be sharing sensitive test results. * Chlamydia and Gonorrhoea, Amplified (02/11/2020 3:51 PM EDT) Chlamydia Trachomatis, DNA Probe NOT DETECTED (NEG) [facility] Comment:Reference range: NOT DETECTED URINE GC AMP PROBE NOT DETECTED (NEG) [facility] Comment: Reference range: NOT DETECTED (NOTE) The analytical performance characteristics of this assay, when used to test SurePath(TM) specimens have been determined by [employer]. The modifications have not been cleared or approved by the FDA. This assay has been validated pursuant to the CLIA regulations and is used for clinical purposes. = For additional information, please refer to https://education.Adteractive/faq/ULC138 (This link is being provided for information/ educational purposes only.) = Test Performed by: [facility], [address] [place] [address]. [id number]. Battalion Chief: Kavya Chaney MD. Testing performed or reported by [facility], a Service of [facility], [address] [place] [address] Malvin Romero MD, Engine Lathe Tender Urine 02/11/2020 3:51 PM EDT 02/11/2020 9:56 PM EDT us Melanie Kong MD LAB MICROBIOLOGY - GENERAL JONATHAN ZIEGLER Final Result [facility] from Last 3 Months or Most Recently Relevant to Health Maintenance
--- OUTSIDE RECORDS SUMMARY | 2025-02-20 05:20 | XMS_ITS | Clinical Summary ---
Author Organization [facility] Address [address] [place] [address] Phone Care Team Providers Care Pizza Cook Name Role Phone Unavailable Primary Care Provider Unavailabl e Allergies No known active allergies Medications No known medications Encounters Date Type Department Care Team Description 11/24/2024 11:24 PM EDT - 11/24/2024 11:25 PM EDT Emergency [facility] [address] [place] [address] Discharge Disposition: Left Without Being Seen from Last 3 Months Social History Tobacco Use Types Packs/Day Years Used Date Smoking Tobacco: Never Smokeless Tobacco: Never Tobacco Cessation:Counseling Given: Not Answered Alcohol Use Standard Drinks/Week Comments Yes 0 (1 standard drink = 0.6 oz pur e alcohol) Education Answer Date Recorded Are you interested in more education? Not on veronica e 11/25/2024 Are you concerned about learning? Not on file 11/25/2024 No 11/25/2024 No 11/25/2024 Digital Access Answer Date Recorded No 11/25/2024 No 11/25/2024 Reliable internet access at home? Not on file 11/25/2024 Device with a working camera? Not on file Intimate Partner Violence Answer Date R ecorded Are you denied basic needs s uch as food, clothing, or medical care? No 11/24/2024 In the past 12 months have y ou been in a relationship with a person who hurts, threatens, or tries to control you? No 11/24/2024 Are you denied basic needs s uch as food, clothing, or medical care? No 11/24/2024 In the past 12 months have y ou been in a relationship with a person who hurts, threatens, or tries to control you? No 11/24/2024 Comments Unknown Sex and Gender Information Value Date Recorded Sex Assigned at Female 11/24/2024 9:28 PM EDT Legal Sex Female 9:26 PM EDT Gender Identity Female 11/24/2024 9:28 PM EDT Sexual Orientation Straight 11/24/2024 9: 28 PM EDT Last Filed Vital Signs Vital Sign Reading Time Taken Comments Blood Pressure 110/84 11/24/2024 9:29 PM EDT Pulse 86 11/24/2024 9:29 PM EDT Temperature 36.5 C (97.7 F) 11/24/2024 9:29 PM EDT Respiratory Rate 20 11/24/2024 9:29 PM EDT Oxygen Saturation 100% 11/24/2024 9:29 PM EDT Inhaled Oxygen Concentration - - Weight 56.7 kg (125 lb) 11/24/2024 9:29 PM EDT Height 154.9 cm (5' 1 ) 11/24/2024 9:29 PM EDT Body Mass Index 23.62 11/24/2024 9:29 PM EDT Plan of Treatment Health Maintenance Due Date Last Done Comments DEPRESSION SCREENING 2014 SMOKING Hx and SMOKELESS TOB ACCO SCREENING 11/09/2015 HPV VACCINES (1 - 3-dose series) 2017 CHLAMYDIA SCREENING 2018 MENINGOCOCCAL VACCINES (B) ( 1 of 2 - Standard) 2018 HEPATITIS C SCREENING 2020 HIV ONE-TIME SCREENING (18-6 5 YEARS) 2020 PAP SMEAR 11/09/2023 Adult Td,Tdap Booster 03/11/2024 03/11/2014 INFLUENZA VACCINE (#1) 2025 COVID-19 VACCINE ( - 2023-2 5 season) 2025 HEPATITIS A VACCINES Aged Out No long er eligible based on patient's age to complete this topic HIB VACCINES Aged Out No longer eligi ble based on patient's age to complete this topic MENINGOCOCCAL VACCINES (ACWY) Aged Out No longer eligible based on patient's age to complete this topic PNEUMOCOCCAL VACCINES (0-49 years) Aged Out No longer eligible based on patient's age to complete this topic Medical Devices Not on file Additional Source Comments The information contained in this document represents components of the legal health record. It is not the complete legal health record.[facility]
--- OUTSIDE RECORDS SUMMARY | 2025-02-20 05:20 | XMS_ITS | Encounter Summary ---
Author Organization [facility] Address [address] [place] [address] Phone Care Team Providers Care Slat Pickler Name Role Phone Melanie Kong MD Primary Care Provider [phone] Encounter Details Date Type Department Care Team (Late st Contact Info) Description 01/17/2017 Conversion Encounter [facility] [address] [place] [address] Social History Tobacco Use Types Packs/Day Years Used Date Smoking Tobacco: Never Assessed Comments Unknown Sex and Gender Information Value Date Recorded Sex Assigned at Not on file Legal Sex Female 5:00 PM EDT Gender Identity Not on file Sexual Orientation Not on file documented as of this encounter Plan of Treatment Not on file documented as of this encounter Visit Diagnoses Not on filedocumented in this encounter Care Teams Slat Pickler Relationship Specialty Start Date End Date Melanie Kong MD [address] [place] [address] PCP - General Pediatrics 12/02/19 05/22/23 documented as of this encounter
== END 2025-02-20 05:18 | disposition home or self-care (01) ==
LOC: HO.ED 05:17
PROVIDERS: Emergency Provider Emergency Medicine
DX: R11.15 Cyclical vomiting syndrome unrelated to migraine (principal); R11.2 Nausea with vomiting, unspecified; R10.13 Epigastric pain
CPT/HCPCS: 96361; 96374; 99284; J1790; J7120

== ENCOUNTER 2025-03-21 05:59 | Emergency (ER) | payer OTHER, SELFPAY ==
[2025-03-21 06:24] VITALS: BMI 22.2
[2025-03-21 07:16] LABS: MANUAL DIFF FLAG NO
[2025-03-21 07:17] LABS: Hematocrit 37.2 % (37.0-47.0); Hemoglobin 13.1 g/dl (12.0-16.0); Imm Gran Abs Auto 0.03 X10*3/uL (0.00-0.03); Imm Gran Pct Auto 0.3 % (0.0-0.4); Lymphocytes Absolute Auto 1.6 X10*3/uL (1.2-4.9); Mean Corpuscular HGB Conc 35.2 g/dl (31.0-35.0); Mean Corpuscular Hemoglobin 30.0 pg (27.0-33.0); Mean Corpuscular Volume 85.3 fL (80.0-98.0); NRBC Abs Auto 0.000 X10*3/uL (0.0-0.012); NRBC Pct Auto 0.0 /100WBC (0.0-0.2); Platelet Count 307 X10*3/uL (160-400); Red Blood Count 4.36 X10*6/uL (4.20-5.50); White Blood Count 10.7 X10*3/uL (4.8-10.8)
[2025-03-21 07:33] LABS: Alanine Aminotransferase 12 U/L (0-31); Albumin Level 4.7 g/dL (3.5-5.0); Alkaline Phosphatase 52 U/L (39-117); Anion Gap 19 (12-20); Aspartate Amino Transferase 21 U/L (5-31); Blood Urea Nitrogen 6 mg/dL (9-16); Calcium 9.3 mg/dL (8.4-10.2); Carbon Dioxide 14 mmol/L (22-29); Chloride 112 mmol/L (96-108); Creatinine Clr Calc Pharmacy 107.4; Estimated Glomerular Filt Rate > 60; Lipase 26 U/L (8-78); Potassium 3.5 mmol/L (3.3-5.1); Sodium 141 mmol/L (135-145); Total Protein 7.7 g/dL (6.5-8.0)
--- OUTSIDE RECORDS SUMMARY | 2025-03-21 07:45 | XMS_ITS | Clinical Summary ---
Author Organization [facility] Address [address] [place] [phone] Phone Care Team Providers Care Press Cleaner Name Role Phone Unavailable Primary Care Provider [...] 02/11/2020, 014 Procedures * Due to [place] [employer] law, this organization might not be sharing sensitive test results. Procedure Name Priority Date/Time Associated Diagnosis Comments CHLAMYDIA AND GONORRHEA, AMPLIFIED Routine 02/11/2020 3:51 PM EDT Screening examination for bacterial and spirochetal disease from Last 3 Months or Most Recently Relevant to Health Maintenance Results * Due to [facility] law, this organization might not be sharing sensitive test results. * Chlamydia and Gonorrhoea, Amplified (02/11/2020 3:51 PM EDT) Chlamydia Trachomatis, DNA Probe NOT DETECTED (NEG) [facility] Comment:Reference range: NOT DETECTED URINE GC AMP PROBE NOT DETECTED (NEG) [facility] Comment: Reference range: NOT DETECTED (NOTE) The analytical performance characteristics of this assay, when used to test SurePath(TM) specimens have been determined by [employer]. The modifications have not been cleared or approved by the FDA. This assay has been validated pursuant to the CLIA regulations and is used for clinical purposes. = For additional information, please refer to https://education.myWebRoom/faq/APW812 (This link is being provided for information/ educational purposes only.) = Test Performed by: [employer] [facility], [address] [place] [address]. [id number]. Director Of Patient Financial Services: Kavya Chaney MD. Testing performed or reported by [facility], a Service of [facility], [address] [place] [address] Malvin Romero MD, Inseam Trimming Machine Operator Urine 02/11/2020 3:51 PM EDT 02/11/2020 9:56 PM EDT us Melanie Kong MD LAB MICROBIOLOGY - GENERAL JONATHAN ZIEGLER Final Result [facility] from Last 3 Months or Most Recently Relevant to Health Maintenance
--- OUTSIDE RECORDS SUMMARY | 2025-03-21 07:45 | XMS_ITS | Encounter Summary ---
Author Organization [facility] Address [address] [place] [address] Phone Care Team Providers Care Rug Cutter Name Role Phone Melanie Kong MD Primary Care Provider [phone] Encounter Details Date Type Department Care Team (Late st Contact Info) Description 01/17/2017 Conversion Encounter [facility] [address] [place] [address] Social History Tobacco Use Types Packs/Day Years [...] on filedocumented in this encounter Care Teams Rug Cutter Relationship Specialty Start Date End Date Melanie Kong MD [address] [place] [address] PCP - General Pediatrics 12/02/19 05/22/23 documented as of this encounter
--- OUTSIDE RECORDS SUMMARY | 2025-03-21 07:45 | XMS_ITS | Clinical Summary ---
Author Organization [facility] Address [address] [place] [address] Phone Care Team Providers Care Cpr Instructor Name Role Phone Unavailable Primary Care Provider Unavailabl e Allergies No known active allergies Medications No known medications Social History Tobacco Use Types Packs/Day Years [...] VACCINE (#1) 2025 COVID-19 VACCINE ( - 2024-2 6 season) 2025 HEPATITIS A VACCINES Aged Out [...] It is not the complete legal health record.[facility]
--- NOTE | 2025-03-21 07:50 | ED_ITS ---
HPI - Abdominal Pain General Chief Complaint: Abdominal Pain Stated Complaint: abdominal pain and vomiting Time Seen by Provider: 03/21/25 07:41 Source: patient and family Mode of arrival: ambulatory Limitations: no limitations History of Present Illness ED Provider: HPI narrative: 24-year-old female with longstanding history of GI issues, has been doing well until she drank alcohol last night about 5 drinks between 7pm and 21:30, presented with nausea, vomiting, dry retching, had some brownish emesis and so mom and boyfriend became concerned and brought her to the ER. No reports of vaginal bleeding or discharge. Smokes marijuana on daily basis well Related Data Previous Rx's ?Medication ?Instructions ?Recorded ondansetron 4 mg disintegrating 4 mg PO Q6H PRN nausea and 07/25/21 tablet vomiting #10 tabs ondansetron 4 mg disintegrating 4 mg PO Q6-8H PRN naus ea and 11/16/23 tablet vomiting #10 tabs ondansetron 4 mg disintegrating 4 mg PO Q8H 3 days #9 tabs 03/20/24 tablet dicyclomine 10 mg capsule 10 mg PO TID PRN spasms 7 da ys #21 11/02/24 caps ondansetron 4 mg disintegrating 4 mg PO Q8H PRN nausea and 11/02/24 tablet vomiting 3 days #4 tabs psyllium husk 3.4 gram/5.4 gram 1 tbsp PO BID #660 gra ms 11/02/24 oral powder (Metamucil) famotidine 20 mg tablet 20 mg PO BEDTIME #30 tabs ondansetron 4 mg disintegrating 4 mg PO Q8H PRN nausea and 03/21/25 tablet vomiting #4 tabs sucralfate 1 gram tablet (Carafate) 1 g PO Q6H 7 days #28 tabs 03/21/25 Allergies Allergy/AdvReac Type Severity Reaction Status Date / Time No Known Allergies Allergy Verified 03/21/25 06:27 Review of Systems Constitutional: Reports as per HPI [facility] Past Medical History Medical History COVID-19 Social History Social History Alcohol intake: current Alcohol intake frequency: a few times a week Smoked in Last 30 Days: No Use of substances other than those prescribed or required for medical reasons: Yes Substance Use Type: Marijuana Advance Directives: No Advance Directives Information Provided: Yes Physical Exam ED Exam Exam: General: ?Appears of stated age in discomfort ? ?PERRLA, EOMI, MMM, no scleral icterus ? Neck: Supple, no LAD ? ?CV: RRR, no obvious murmurs appreciated ? ?Resp: ?No wheezing rales rhonchi no stridor moving air well ? Abd: ?Epigastric tenderness, voluntary guarding, no tenderness in the lower quadrants ? ?MSK: FROM, strength 5/5 all extremities ? Skin: Warm, dry, intact, no jaundice ? ?Neuro: ?Alert and oriented x3, moving upper and lower extremities symmetrically, no obvious facial asymmetry noted, cranial nerves 2-12 intact Vital Signs: Vital Signs - 24 hr 03/21/25 09:01 Temperature 98.8 F Pulse Rate 102 H Respiratory Rate 18 Blood Pressure 108/63 Pulse Oximetry 96 Oxygen Delivery Method Room Air BMI result Body Mass Index 22.2 Medical Decision Making Medical Decision Making MDM Narrative: 7:53 AM 03/21/2025 (Dr. Ruslan Huang): I have seen patient for similar presentation, she was doing well with my recommendations and also suspect that she may have irritable bowel syndrome, develop worsening pain in the epigastric area nausea, vomiting when she drank alcohol sounds like she drinks 5 drinks a week smokes marijuana, spoke with mom and boyfriend regarding PCP, and GI needing to be involved in her care, this has been discussed with them in the past, received droperidol and her retching has abated. 9:09 AM 03/21/2025 (Dr. Ruslan Huang): Feels better, we will discharge Differential Diagnosis Differential Diagnoses: The differential diagnosis associated with the presentation includes (Cholecystitis, pancreatitis, hepatitis, gastritis, cholangitis, choledocholithiasis, , cyclic vomiting,) Lab Data 03/21/25 07:12 03/21/25 07:12 Labs: Lab Results 03/21/25 Range/Units 07:12 WBC 10.7 (4.8-10.8) X10*3/uL RBC 4.36 (4.20-5.50) X10*6/uL Hgb 13.1 (12.0-16.0) g/dl Hct 37.2 (37.0-47.0) % MCV 85.3 (80.0-98.0) fL MCH 30.0 (27.0-33.0) pg MCHC 35.2 H (31.0-35.0) g/dl RDW 12.1 (11.0-16.0) % Plt Count 307 (160-400) X10*3/uL MPV 10.0 (9.4-12.3) fL Immature Gran % (Auto) 0.3 (0.0-0.4) % Neut % (Auto) 80.7 H (45-73) % Lymph % (Auto) 15.3 L (20-40) % [place] % (Auto) 3.4 (2-11) % Eos % (Auto) 0.0 (0-4) % Baso % (Auto) 0.3 (0-2) % Lymph # (Auto) 1.6 (1.2-4.9) X10*3/uL [place] # (Auto) 0.4 (0.1-1.2) X10*3/uL Eos # (Auto) 0.0 (0.0-0.4) X10*3/uL Baso # (Auto) 0.0 (0.0-0.2) X10*3/uL Abs Immat Gran (auto) 0.03 (0.00-0.03) X10*3/uL Absolute Neuts (auto) 8.6 H (2.0-8.3) x10*3/uL Absolute Nucleated RBC 0.000 (0.0-0.012) X10*3/uL Nucleated RBC % (auto) 0.0 (0.0-0.2) /100WBC Sodium 141 (135-145) mmol/L Potassium 3.5 (3.3-5.1) mmol/L Chloride 112 H (96-108) mmol/L Carbon Dioxide 14 L (22-29) mmol/L Anion Gap 19 (12-20) BUN 6 L (9-16) mg/dL Creatinine 0.62 (0.5-1.4) mg/dL Estim Creat Clear Calc 107.4 Estimated GFR > 60 Random Glucose 143 H (60-115) mg/dL Calcium 9.3 (8.4-10.2) mg/dL Total Bilirubin 0.4 (0.0-1.0) mg/dL Direct Bilirubin 0.1 (0.0-0.5) mg/dL AST 21 (5-31) U/L ALT 12 (0-31) U/L Alkaline Phosphatase 52 (39-117) U/L Total Protein 7.7 (6.5-8.0) g/dL Albumin 4.7 (3.5-5.0) g/dL Lipase 26 (8-78) U/L Beta HCG, Quant < 2 mIU/mL Medications Administered Discontinued Medications Generic Name Dose Route Start Last Admin Trade Name Freq PRN Reason Stop Dose Admin Al Hydroxide/Mg Hydroxide 15 ml 03/21/25 07:49 03/21/25 08:01 Magnesium Hydrox/Alum Hydrox 30 Ml Oral.Susp PO 03/21/25 07:50 15 ml ONCE ONE Administration Diphenhydramine HCl 50 mg 03/21/25 06:57 03/21/25 07:03 Diphenhydramine Hcl 50 Mg/Ml Vial IM 03/21/25 06:58 50 mg ONCE ONE Administration Droperidol 1.25 mg 03/21/25 06:57 03/21/25 07:02 Droperidol 5 Mg/2 Ml Vial IM 03/21/25 06:58 1.25 mg ONCE ONE Administration Famotidine 20 mg 03/21/25 07:49 03/21/25 08:00 Famotidine/Pf 20 Mg/2 Ml Vial IVPUSH 03/21/25 07:50 20 mg ONCE ONE Administration Sodium Chloride 1,000 mls @ 999 mls/hr 03/21/25 08:00 03/21/25 08:01 Ns IV 03/21/25 09:00 999 mls/hr .Q1H1M GISSELLE Administration Lidocaine HCl 15 ml 03/21/25 07:49 03/21/25 08:01 Lidocaine Hcl Viscous 2 % 15 Ml Solution PO 03/21/25 07:50 15 ml ONCE ONE Administration Ondansetron HCl 4 mg 03/21/25 06:21 03/21/25 06:29 Ondansetron Odt 4 Mg Tab.Rapdis TRANSLINGU 03/21/25 06:22 4 mg ONCE ONE Administration Critical Care Time Critical Care Time Critical Care Time: Yes Total Critical Care Time: 35 Attestation: Time is exclusive of separately billable procedures. Time includes: direct patient care, patient reassessment, coordination of patient care, interpretation of data (laboratory data, pulse oximetry, arterial blood gases and chest xrays), review of patient's medical records, medical consultation and documentation of patient care. Procedures excluded from critical care time: central intravenous line placement and electrocardiography. Discharge Plan Discharge Clinical Impression: Cyclic vomiting syndrome Patient Disposition: Home, Self-Care Additional Instructions: Zofran as needed for nausea and vomiting, famotidine 20 mg before bedtime for the next 1 month, Carafate 20 minutes before any meals for the next 1 week, well-balanced meals, very similar recommendations I have provided for you in the past she is going to make sure he had and regular basis, eat a healthy breakfast, I definitely recommend that you complete the stopped using marijuana and completely stop drinking alcohol, avoid spicy, fatty greasy foods Your workup today has been reassuring Prescriptions: New sucralfate [Carafate] 1 gram tablet 1 g PO Q6H 7 Days Qty: 28 0RF famotidine 20 mg tablet 20 mg PO BEDTIME Qty: 30 0RF ondansetron 4 mg tablet,disintegrating 4 mg PO Q8H PRN (Reason: nausea and vomiting) Qty: 4 0RF No Action ondansetron 4 mg tablet,disintegrating 4 mg PO Q6H PRN (Reason: nausea and vomiting) Qty: 10 0RF ondansetron 4 mg tablet,disintegrating 4 mg PO Q8H 3 Days Qty: 9 0RF dicyclomine 10 mg capsule 10 mg PO TID PRN (Reason: spasms) 7 Days Qty: 21 0RF Metamucil 3.4 gram/5.4 gram powder 1 tbsp PO BID Qty: 660 0RF Rx Instructions: mix into at least 8 oz of water or juice before administering ondansetron 4 mg tablet,disintegrating 4 mg PO Q8H PRN (Reason: nausea and vomiting) 3 Days Qty: 4 0RF ondansetron 4 mg tablet,disintegrating 4 mg PO Q6-8H PRN (Reason: nausea and vomiting) Qty: 10 0RF Print Language: Welsh
[2025-03-21] MEDS: Magnesium Hydrox/Alum Hydrox 30 ML ORAL.SUSP 15 ML PO (08:01)
[2025-03-21] MEDS: Lidocaine HCl Viscous 2 % 15 ML SOLUTION PO (08:01)
[2025-03-21 09:01] VITALS: BP 108/63; PULSE 102; RESP 18; TEMP 37.1; O2SAT 96
[2025-03-21 09:25] LABS: Appearance Urine Clear; Glucose Urine UA Negative (Negative); PH 7.0 (5.0-9.0); Specific Gravity - Urine 1.025 (1.005-1.025); UMIC TRIGGER UACC YES
[2025-03-21 09:35] VITALS: BP 108/63; PULSE 102; RESP 18; TEMP 37.1; O2SAT 96
== END 2025-03-21 09:36 | disposition home or self-care (01) ==
PROVIDERS: Emergency Provider Emergency Medicine
DX: R11.15 Cyclical vomiting syndrome unrelated to migraine (principal); R10.9 Unspecified abdominal pain; R11.2 Nausea with vomiting, unspecified; F12.90 Cannabis use, unspecified, uncomplicated
CPT/HCPCS: 36415; 80053; 81001; 82248; 83690; 84702; 85025; 96361; 96372; 96374; 99284; J1200; J1308; J1790

== ENCOUNTER 2025-03-29 10:48 | Outpatient (AMB) | payer OTHER, SELFPAY ==
--- NOTE | 2025-03-29 10:51 | A.OFFPC_ITS ---
Vital Signs 03/29/25 10:59 Height 5 ft 1.18 in Weight 55.338 kg BMI 22.9 BP 100/62 Blood Pressure Location Lt brachial Position Sitting Respiration 16 Pulse 59 Pulse Source Pulse Oximeter Temp 97.9 F Temp Source Temporal Artery Scan Pulse Oximetry (%) 98 Oxygen Delivery Method Room Air Intake Visit Reasons: stomach pain Foundry Finisher Required: No Accompanied by: Mother Allergies No Known Allergies Allergy (Verified 03/29/25 10:51) Medication List - Last Reconciled 03/29/25 by TRA Ceja capsaicin 0.033% 1 appl topical BID-TID PRN escitalopram oxalate 20 mg PO QAM famotidine 20 mg PO BID lisdexamfetamine 10 mg PO QAM norethindrone-e.estradiol-iron 1 mg-20 mcg ()/75 mg () (06/22 ()) 1 tab PO DAILY ondansetron 4 mg PO Q8H PRN psyllium husk (Metamucil) 1 tbsp PO BID sucralfate (Carafate) 1 g PO Q6H 7 days Tobacco use date assessed: 03/29/25 Dental Screening Dental Screen Date: 03/29/25 Did you have a dental visit in the last 12 months?: Yes Did you have a dental problem in the last 6 months where you did not have access to dental care?: No Was dental information given to patient?: Patient has dentist HPI HPI Comments History of Present Illness Details 24 year old female with history of depre ssion/anxiety/adhd presents to office today accompanied by her mother to establish care and for annual physical exam. She is currently a student at [employer] studying in [employer]. She currently lives with her mother and father, brother, grandson. Reports drinking 1-2 alcoholic beverages every 2 weeks. Vapes nicotine. No illicit drugs. Smokes marijuana daily. Healthy diet overall. Only exercising once weekly. Cyclic vomiting syndrome- suspect related to cannabis use. She has been to the emergency department multiple times over the last 1.5 years due to cyclic vomiting. She has never been hospitalized. Symptoms typically resolve in 12-44 hours but reports severe epigastric pain, nausea, intractable vomiting, chills and sweats. Reports nausea is controlled with ondansetron. She states that she was not aware that cannabis can affect this syndrome. There is associated vertigo. Depression/anxiety/ADHD-following with psychiatry and counseling at [facility]. Stable on escitalopram and Vyvanse Concerns: Those noted above Health maintenance: Needs chief procurement officer referral Mammograms as start at age 40 Colonoscopies to started age 45 Advised to schedule eye exam due to blurred vision Dentistry up-to-date Vaccines up-to-date Reviewed past medical, surgical, social, family history ROS: General: No fevers, malaise, unintentional weight loss HEENT: No blurred vision, diplopia. No sore throat, nasal congestion, rhinorrhea, sinus pain, ear pain. No hearing loss Neck - no adenopathy Cardiovascular: No chest pain, palpitations, or leg edema Respiratory: No shortness of breath, wheezing, cough Breast: No pain, palpable lumps, nipple inversion GI: No dysphagia, odynophagia, globus sensation. No abdominal pain, nausea, vomiting, diarrhea, constipation, melena, hematochezia : No dysuria, hematuria, increased urinary frequency, decreased urinary output. [employer]: No abn vaginal bleeding or discharge MSK: No myalgia, back pain, arthralgias Neuro: No headaches, weakness, paresthesias Psych: no depression/anxiery. No AH/VH. No SI/HI Skin: No rashes or lesions EXAM: Constitutional - Awake and Alert, No apparent distress Eyes - PERRLA, EOMI. Anicteric Ears - external ears normal, canals clear, TMs intact and pearly ford with good cone of light Nose- septum midline, nares clear, no sinus tenderness Mouth/throat- mucosa moist, tongue and uvula midline, no erythema/edema or tonsillar adenopathy. Neck-trachea midline, thyroid symmetric without palpable nodules, no adenopathy Cardiovascular - S1S2, RRR, No edema Respiratory - Normal lung expansion, Normal respiratory effort, No respiratory distress, CTA bilaterally Gastrointestinal - NT / ND; +BS; No rebound or guarding - No CVA tenderness Extremities - no calf tenderness bilaterally, no swelling Musculoskeletal - Normal inspection, normal ROM Skin - Warm/Dry, no concerning lesions Neurological - Alert & oriented x3, CN II-XII in tact, 5/5 strength BUE and BLE, 2+ patellar reflexes, sensation intact Psychological - Appropriate affect [facility] Medical History Depression with anxiety Cyclic vomiting syndrome Cyclic vomiting syndrome Marijuana use COVID-19 Surgical History No pertinent past surgical history Family History Maternal Aunt Hypertension Hypothyroidism Mother Hypertension Father Hypertension Maternal Aunt Breast cancer Maternal Grandmother Dementia Social History Housing: Apartment Alcohol intake: current Alcohol intake frequency: a few times a week Patient Tobacco Use Status: Never used Tobacco e-Cigarette/Vaping Use: Currently Using Substance Use Type: Marijuana service: No Current occupational status: student Questionnaire AUDIT C Alcohol Use Questionnaire (AUDIT-C) 1. How often do you have a drink containing alcohol?: 2-3 times a week 2. How many drinks containing alcohol do you have on a typical day when you are drinking?: 3 or 4 3. How often do you have six or more drinks on one occasion?: Never Total Score: 4 Physical exam (Primary Care) Vital Signs: Last Vital Signs Temp 97.9 F 03/29/25 10:59 Pulse 59 03/29/25 10:59 Resp 16 03/29/25 10:59 BP 100/62 03/29/25 10:59 Pulse Ox 98 03/29/25 10:59 Oxygen Delivery Method Room Air 03/29/25 10:59 BMI result Body Mass Index 22.9 Tobacco/Smoking Status: Tobacco use Status Tobacco use date assessed 03/29/25 03/29/25 10:52 Patient Tobacco Use Status Never used Tobacco 03/29/25 11:01 e-Cigarette/Vaping Use Currently Using 03/29/25 11:01 Coding Level of Care Code New Pt Prev Care 18-39yr([id number] Diagnoses Routine medical exam Z00.00 Cyclic vomiting syndrome R11.15 Marijuana use F12.90 Depression with anxiety F41.8 Assessment & Plan Assessment & Plan (1) Routine medical exam: Code(s): Z00.00 - Encounter for general adult medical examination without abnormal findings Category: Medical (2) Cyclic vomiting syndrome: Code(s): R11.15 - Cyclical vomiting syndrome unrelated to migraine Category: Medical Plan: Suspect cannabis induced. Strongly advised cessation. Advised that she may still experience episodes up to 2-3 months after cessation but encouraged to continue with this. She is given prescription for capsaicin cream as well as Zofran to use as needed. Advised hot shower during episodes. Per request, referred to gastroenterology for further assessment. Labs ordered as below. (3) Marijuana use: Code(s): F12.90 - Cannabis use, unspecified, uncomplicated Category: Social Hx Plan: Cessation strongly advised. As above (4) Depression with anxiety: Code(s): F41.8 - Other specified anxiety disorders Category: Medical Plan: Stable. Continue following with Psychiatry/therapy. Continue therapies as ordered Plan Referred to dermatology for hypertrophic scar of the right earlobe Routine screening labs as ordered below Referred for cervical cancer screening Continue following for annual skin exams and use sun protection Annual eye exams Dental exams twice yearly Wear seat belt in car Recommend regular exercise and healthy diet Follow-up in the office in 1 year for annual physical exam, sooner if needed Orders: Orders Basic Metabolic Panel Today F12.90 - Cannabis use, unspecified, uncomplicated, R11.15 - Cyclical vomiting syndrome unrelated to migraine, Z00.00 - Encounter for general adult medical examination without abnormal findings Lipid Panel Today F12.90 - Cannabis use, unspecified, uncomplicated, R11.15 - Cyclical vomiting syndrome unrelated to migraine, Z00.00 - Encounter for general adult medical examination without abnormal findings TSH reflex Free T4 Today F12.90 - Cannabis use, unspecified, uncomplicated, R11.15 - Cyclical vomiting syndrome unrelated to migraine, Z00.00 - Encounter for general adult medical examination without abnormal findings Vitamin D 25-OH Total Today F12.90 - Cannabis use, unspecified, uncomplicated, R11.15 - Cyclical vomiting syndrome unrelated to migraine, Z00.00 - Encounter for general adult medical examination without abnormal findings IRON PROFILE Today F12.90 - Cannabis use, unspecified, uncomplicated, R11.15 - Cyclical vomiting syndrome unrelated to migraine, Z00.00 - Encounter for general adult medical examination without abnormal findings UA and rflx microscopic Today R10.2 - Pelvic and perineal pain Complete Blood Count Auto Diff Today F12.90 - Cannabis use, unspecified, uncomplicated, R11.15 - Cyclical vomiting syndrome unrelated to migraine, Z00.00 - Encounter for general adult medical examination without abnormal findings Hemoglobin A1c Today F12.90 - Cannabis use, unspecified, uncomplicated, R11.15 - Cyclical vomiting syndrome unrelated to migraine, Z00.00 - Encounter for general adult medical examination without abnormal findings Liver Panel Today F12.90 - Cannabis use, unspecified, uncomplicated, R11.15 - Cyclical vomiting syndrome unrelated to migraine, Z00.00 - Encounter for general adult medical examination without abnormal findings Lipase Today F12.90 - Cannabis use, unspecified, uncomplicated, R11.15 - Cyclical vomiting syndrome unrelated to migraine, Z00.00 - Encounter for general adult medical examination without abnormal findings Amylase Today F12.90 - Cannabis use, unspecified, uncomplicated, R11.15 - Cyclical vomiting syndrome unrelated to migraine, Z00.00 - Encounter for general adult medical examination without abnormal findings Referrals CONTRACT ADMINISTRATION COORDINATOR Referral Z12.4 - Encounter for screening for malignant neoplasm of cervix Gastroenterology Referral R11.15 - Cyclical vomiting syndrome unrelated to migraine Dermatology Referral L91.0 - Hypertrophic scar Medications: New capsaicin 0.033% do not wash area for at least 30 min after application 1 appl topical BID-TID PRN 56.6 grams 0RF epigastric pain nicotine 1 patch transdermal Q24H 28 ea 0RF nicotine (polacrilex) (Nicorette) 2 mg buccal Q2H PRN 100 ea 0RF nicotine cravings mupirocin 2% (Centany) 1 appl topical BID 22 grams 0RF Changed From famotidine 20 mg PO BEDTIME 30 tabs 0RF To famotidine 20 mg PO BID 180 tabs 0RF Refilled ondansetron 4 mg PO Q8H PRN 30 tabs 1RF nausea and vomiting Discontinued ondansetron Discontinued Reason: Duplicate 4 mg PO Q6H PRN 10 tabs 0RF nausea and vomiting ondansetron Discontinued Reason: Duplicate 4 mg PO Q6-8H PRN 10 tabs 0RF nausea and vomiting ondansetron Discontinued Reason: Duplicate 4 mg PO Q8H 3 days 9 tabs 0RF dicyclomine Discontinued Reason: Patient Completed Course 10 mg PO TID 7 days PRN 21 caps 0RF spasms ondansetron Discontinued Reason: Duplicate 4 mg PO Q8H 3 days PRN 4 tabs 0RF nausea and vomiting
[2025-03-29 10:59] VITALS: BP 100/62; PULSE 59; RESP 16; TEMP 36.6; O2SAT 98; BMI 22.9
--- OUTSIDE RECORDS SUMMARY | 2025-03-29 13:26 | XMS_ITS | Encounter Summary ---
Author Organization [facility] Address [address] [place] [address] Phone Care Team Providers Care Tong Hooker Name Role Phone Melanie Kong MD Primary Care Provider [phone] Encounter Details Date Type Department Care Team (Late st Contact Info) Description 01/17/2017 Conversion Encounter [facility] [address] [place] [address] Social History Tobacco Use Types Packs/Day Years [...] on filedocumented in this encounter Care Teams Tong Hooker Relationship Specialty Start Date End Date Melanie Kong MD [address] [place] [address] PCP - General Pediatrics 12/02/19 05/22/23 documented as of this encounter
--- OUTSIDE RECORDS SUMMARY | 2025-03-29 13:26 | XMS_ITS | Clinical Summary ---
Author Organization [facility] Address [address] [place] [phone] Phone Care Team Providers Care Bass String Winder Name Role Phone Unavailable Primary Care Provider [...] It is not the complete legal health record.[facility]
--- OUTSIDE RECORDS SUMMARY | 2025-03-29 13:26 | XMS_ITS | Clinical Summary ---
Author Organization [facility] Address [address] [place] [id number] Phone Care Team Providers Care Music Critic Name Role Phone Unavailable Primary Care Provider [...] Completed 02/11/2020, 014 Procedures * Due to [place] law, this organization might not be sharing sensitive test results. Procedure Name Priority Date/Time Associated Diagnosis Comments CHLAMYDIA AND GONORRHEA, AMPLIFIED Routine 02/11/2020 3:51 PM EDT Screening examination for bacterial and spirochetal disease from Last 3 Months or Most Recently Relevant to Health Maintenance Results * Due to [facility] law, this organization might not be sharing sensitive test results. * Chlamydia and Gonorrhoea, Amplified (02/11/2020 3:51 PM EDT) Chlamydia Trachomatis, DNA Probe NOT DETECTED (NEG) [facility] Comment:Reference range: NOT DETECTED URINE GC AMP PROBE NOT DETECTED (NEG) [facility] Comment: Reference range: NOT DETECTED (NOTE) The analytical performance characteristics of this assay, when used to test SurePath(TM) specimens have been determined by [facility]. The modifications have not been cleared or approved by the FDA. This assay has been validated pursuant to the CLIA regulations and is used for clinical purposes. = For additional information, please refer to https://education.Veeda/faq/QYG295 (This link is being provided for information/ educational purposes only.) = Test Performed by: [facility], [address] [place] [address]. [id number]. Sba Business Development Officer: Kavya Chaney MD. Testing performed or reported by [facility], a Service of [facility], [address] [place] [id number] Malvin Romero MD, Licensing Worker Urine 02/11/2020 3:51 PM EDT 02/11/2020 9:56 PM EDT us Melanie Kong MD LAB MICROBIOLOGY - GENERAL JONATHAN ZIEGLER Final Result [facility] from Last 3 Months or Most Recently Relevant to Health Maintenance
== END 2025-03-29 11:53 | disposition home or self-care (01) ==
PROVIDERS: PCP Physician Assistant; Visit Provider Physician Assistant
DX: Z00.00 Encounter for general adult medical examination without abnormal findings (principal); R11.15 Cyclical vomiting syndrome unrelated to migraine; F12.90 Cannabis use, unspecified, uncomplicated; F41.8 Other specified anxiety disorders

== ENCOUNTER → 2025-03-29 10:48 | Outpatient (BNVA) | payer OTHER, SELFPAY | PROVIDERS: Visit Provider Physician Assistant | DX: Z00.01 Encounter for general adult medical examination with abnormal findings (principal); R11.15 Cyclical vomiting syndrome unrelated to migraine; F41.8 Other specified anxiety disorders; F12.90 Cannabis use, unspecified, uncomplicated; L91.0 Hypertrophic scar; F90.9 Attention-deficit hyperactivity disorder, unspecified type; Z79.899 Other long term (current) drug therapy | CPT/HCPCS: 99385 ==

== ENCOUNTER 2025-03-29 11:57 | Outpatient (REF) | payer OTHER, SELFPAY ==
[2025-03-29 13:14] LABS: Appearance Urine Clear; Glucose Urine UA Negative (Negative); PH 6.5 (5.0-9.0); Specific Gravity - Urine 1.020 (1.005-1.025); UMIC TRIGGER UA YES
[2025-03-29 13:25] LABS: MANUAL DIFF FLAG NO
[2025-03-29 13:35] LABS: Hematocrit 39.7 % (37.0-47.0); Hemoglobin 13.2 g/dl (12.0-16.0); Imm Gran Abs Auto 0.09 X10*3/uL (0.00-0.03); Imm Gran Pct Auto 0.9 % (0.0-0.4); Lymphocytes Absolute Auto 2.9 X10*3/uL (1.2-4.9); Mean Corpuscular HGB Conc 33.2 g/dl (31.0-35.0); Mean Corpuscular Hemoglobin 30.2 pg (27.0-33.0); Mean Corpuscular Volume 90.8 fL (80.0-98.0); NRBC Abs Auto 0.000 X10*3/uL (0.0-0.012); NRBC Pct Auto 0.0 /100WBC (0.0-0.2); Platelet Count 264 X10*3/uL (160-400); Red Blood Count 4.37 X10*6/uL (4.20-5.50); White Blood Count 10.4 X10*3/uL (4.8-10.8)
[2025-03-29 13:37] LABS: Alanine Aminotransferase 10 U/L (0-31); Albumin Level 4.5 g/dL (3.5-5.0); Alkaline Phosphatase 48 U/L (39-117); Anion Gap 12 (12-20); Aspartate Amino Transferase 23 U/L (5-31); Blood Urea Nitrogen 11 mg/dL (9-16); Calcium 9.2 mg/dL (8.4-10.2); Carbon Dioxide 24 mmol/L (22-29); Chloride 108 mmol/L (96-108); Cholesterol 147 mg/dL (<200); Estimated Glomerular Filt Rate > 60; HDL Cholesterol 54 mg/dL (>40); Iron 61 mcg/dL (30-160); Lipase 37 U/L (8-78); Percent Iron Saturation 13 % (15-50); Potassium 3.5 mmol/L (3.3-5.1); Sodium 140 mmol/L (135-145); Total Iron Binding Capacity 452 mcg/dL (228-428); Total Protein 7.5 g/dL (6.5-8.0); Triglycerides 97 mg/dL (<150); Unsaturated Iron Binding 391 ug/dL
[2025-03-29 13:38] LABS: Amylase 47 U/L (28-100)
== END 2025-03-29 11:58 | disposition home or self-care (01) ==
LOC: HO.10HDL 11:57
PROVIDERS: Visit Provider Physician Assistant
DX: Z00.00 Encounter for general adult medical examination without abnormal findings (principal); R11.15 Cyclical vomiting syndrome unrelated to migraine; F12.90 Cannabis use, unspecified, uncomplicated; R10.20 Pelvic and perineal pain unspecified side
CPT/HCPCS: 36415; 80048; 80061; 80076; 81001; 82150; 82306; 83036; 83540; 83690; 84443; 85025